=== PATIENT | female | born 1950 | race Caucasian/White ===

== ENCOUNTER → 2016-12-11 | Outpatient (REF) | payer MEDICARE | LOC: M LAB REF 16:29 | PROVIDERS: ATTEND Physician Assistant | DX: R30.0 Dysuria (principal) ==

== ENCOUNTER → 2020-08-19 | Outpatient (REF) | payer MEDICARE ==
[2020-08-19 19:05] LABS: CALCIUM LEVEL 8.6 MG/DL (8.8-10.2); CREATININE FOR GFR 1.52 MG/DL (0.55-1.30); POTASSIUM SERUM 5.5 MEQ/L (3.5-5.1)
== END ==
LOC: M LABDRWCV 17:47
PROVIDERS: ATTEND Nurse Practitioner
DX: E87.5 Hyperkalemia (principal)